=== PATIENT | female | born 1995 | race Two or more races ===

== ENCOUNTER 2021-05-09 01:14 | Emergency (ER) | payer BC ==
[~2021-05-09] VITALS: Ht 160 cm; Wt 54.6 kg
[2021-05-09 01:16] VITALS: BP 137/82
== END 2021-05-09 03:23 | disposition home or self-care (01) ==
LOC: ER 01:14
DX: B34.9 Viral infection, unspecified (principal); Z20.822 Contact with and (suspected) exposure to COVID-19
CPT/HCPCS: 81025; 87070; 87426; 87430; 87804; 99283